=== PATIENT | female | born 1960 | race Two or more races ===

== ENCOUNTER 2022-01-04 23:17 | Inpatient (IN) | payer OTHER ==
[~2022-01-04] VITALS: Ht 172.7 cm; Wt 95.7 kg
[2022-01-04] MEDS ORDERED: COLACE100 MG PO (23:24)
--- NOTE | 2022-01-04 23:27 | NUR ---
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 EN ADICIONA PTE REFIERE QUE NO MARQUEZ EVACUADO DESDE HACE 7 BOUDREAUX ATRAS. PTE REFIERE QUE PADECE DE OBSTRUCCION INTESTINAL.
--- NOTE | 2022-01-05 01:21 | NUR ---
SE LE ORIENTA A PACIENTE SOBRE LAS ORDENES MEDICAS, REFIERE ENTEDER LAS MISMAS. SE CANALIZA Y SE LE COLOCA LOS IVF'S, SE LE JUAN JOSE LAS MUETRAS DE SANDRO, SE LE ADMINISTRAN LOS MEDICAMENTOS Y SE LE REALIZA CT CURT LAS ORDENES MEDICAS.
--- NOTE | 2022-01-05 07:55 | NUR ---
SE RECIBE PTE ALERTA Y ORIENTADA EN AZEEM BAJA CON BARANDAS ELEVADAS POR SEGURIDAD, SE OBSERVA PTE CON BUEN PATRON RESPIRATORIO, CON NGT EN FOSA LT Y SUCCION INTERMITENTE. SE OBSERVA AREAD E VENOPUNCION [place] Y ERITEMA. RECIBIENDO 0.9NSS BAJANDO 150ML/HR. PEND CONS. DR. SANCHEZ. SE MANTIENE BAJO OBSERVACION POR CAMBIOS SIGNIFICATIVOS
[2022-01-05] MEDS ORDERED: SUMATRIPTAN SUC50 MG (09:25)
[2022-01-05] MEDS ORDERED: MIRALAX510 GM (09:25)
[2022-01-05] MEDS ORDERED: LIDOCAINE1 EACH (09:25)
[2022-01-05] MEDS ORDERED: CETIRIZINE HCL10 MG (09:26)
[2022-01-05] MEDS ORDERED: VITAMIN D21250 MCG (09:26)
[2022-01-05] MEDS ORDERED: ATORVASTATIN CA20 MG (09:26)
[2022-01-05] MEDS ORDERED: FLONASE16 GM (09:26)
== END 2022-01-07 15:00 | disposition home or self-care (01) | DRG 390 ==
LOC: ER 23:17 → SEC-K 01-05 08:15 → SURH 01-05 09:54
PROVIDERS: ADMIT Surgery; ATTEND Surgery
PROC: 0D9670Z Drainage of Stomach with Drainage Device, Via Natural or Artificial Opening (ICD-10-PCS; principal; 2022-01-05)
DX: K56.690 Other partial intestinal obstruction (principal)